=== PATIENT | male | born 1955 | race Caucasian/White ===

== ENCOUNTER → 2022-08-01 13:19 | Outpatient (BNVA) | payer MEDICARE, OTHER, SELFPAY | PROVIDERS: Family Provider Family Medicine; Visit Provider Specialist | DX: G44.329 Chronic post-traumatic headache, not intractable (principal); D35.2 Benign neoplasm of pituitary gland | CPT/HCPCS: 99204 ==

== ENCOUNTER → 2022-09-01 16:22 | Outpatient (BNVA) | payer MEDICARE, OTHER, SELFPAY | PROVIDERS: Family Provider Family Medicine; PCP Family Medicine; Visit Provider Specialist | DX: G44.329 Chronic post-traumatic headache, not intractable (principal); D35.2 Benign neoplasm of pituitary gland; S13.4XXS Sprain of ligaments of cervical spine, sequela; V89.2XXS Person injured in unspecified motor-vehicle accident, traffic, sequela | CPT/HCPCS: 99213 ==

== ENCOUNTER → 2022-12-13 14:49 | Outpatient (BNVA) | payer MEDICARE, OTHER, SELFPAY | PROVIDERS: Family Provider Family Medicine; PCP Family Medicine; Visit Provider Specialist | DX: D35.2 Benign neoplasm of pituitary gland; G43.709 Chronic migraine without aura, not intractable, without status migrainosus | CPT/HCPCS: 99213 ==

== ENCOUNTER → 2023-03-14 14:24 | Outpatient (BNVA) | payer MEDICARE, OTHER, SELFPAY | PROVIDERS: Family Provider Family Medicine; PCP Family Medicine; Visit Provider Specialist | DX: G44.329 Chronic post-traumatic headache, not intractable (principal) | CPT/HCPCS: 99213 ==

== ENCOUNTER → 2023-07-12 11:50 | Outpatient (BNVA) | payer MEDICARE, OTHER, SELFPAY | PROVIDERS: Family Provider Family Medicine; PCP Family Medicine; Visit Provider Specialist | DX: R29.90 Unspecified symptoms and signs involving the nervous system (principal); G44.329 Chronic post-traumatic headache, not intractable; D35.2 Benign neoplasm of pituitary gland; R11.2 Nausea with vomiting, unspecified | CPT/HCPCS: 96372; 99214; J2405 ==

== ENCOUNTER → 2024-01-10 13:03 | Outpatient (BNVA) | payer MEDICARE, OTHER, SELFPAY | PROVIDERS: Family Provider Family Medicine; PCP Family Medicine; Visit Provider Specialist | DX: R29.90 Unspecified symptoms and signs involving the nervous system (principal); G44.329 Chronic post-traumatic headache, not intractable; D35.2 Benign neoplasm of pituitary gland; G43.711 Chronic migraine without aura, intractable, with status migrainosus | CPT/HCPCS: 99214 ==

== ENCOUNTER → 2024-04-11 12:22 | Outpatient (BNVA) | payer MEDICARE, OTHER, SELFPAY | PROVIDERS: Family Provider Family Medicine; PCP Family Medicine; Visit Provider Specialist | DX: R29.90 Unspecified symptoms and signs involving the nervous system (principal); G44.329 Chronic post-traumatic headache, not intractable; D35.2 Benign neoplasm of pituitary gland; R11.2 Nausea with vomiting, unspecified; G43.711 Chronic migraine without aura, intractable, with status migrainosus; R03.0 Elevated blood-pressure reading, without diagnosis of hypertension; F32.A Depression, unspecified; M17.9 Osteoarthritis of knee, unspecified | CPT/HCPCS: 99214 ==

== ENCOUNTER → 2024-10-22 13:18 | Outpatient (BNVA) | payer MEDICARE, OTHER, SELFPAY | PROVIDERS: Family Provider Family Medicine; PCP Family Medicine; Visit Provider Specialist | DX: R29.90 Unspecified symptoms and signs involving the nervous system (principal); G44.329 Chronic post-traumatic headache, not intractable; D35.2 Benign neoplasm of pituitary gland; R11.2 Nausea with vomiting, unspecified; R03.0 Elevated blood-pressure reading, without diagnosis of hypertension | CPT/HCPCS: 99213 ==